=== PATIENT | female | born 2000 | race Hispanic/Latino ===

== ENCOUNTER 2022-01-06 21:26 | Emergency (ER) | payer MEDICAID, SELFPAY ==
--- NOTE | ~2022-01-06 | XR_ITS ---
EXAM: XR foot RT min 3V DATE: 01/06/2022 21:49 HISTORY: foot stepped on with high heel, bruising swelling . COMPARISON: None available. FINDINGS: Normal mineralization. No fracture or dislocation. No lytic or blastic lesion. Joint space s are maintained. No erosion or periosteal change. Forefoot soft tissue swelling. IMPRESSION: No acute osseous finding in the right foot. Reviewed, dictated and finalized at location K.
[2022-01-06 21:27] VITALS: BP 141/73; PULSE 79; RESP 18; TEMP 36.1; O2SAT 99
[2022-01-06] MEDS: IBUPROFEN 400 MG TABLET 800 MG PO (22:21)
[2022-01-06] MEDS: ACETAMINOPHEN 500 MG TABLET 1000 MG PO (22:22)
--- NOTE | 2022-01-06 22:32 | ED.LOWEXIN ---
HPI - Extremity Injury (Lower) General Chief Complaint: Extremity Injury, Lower Stated Complaint: right foot injury Time Seen by Provider: 01/06/22 21:34 History of Present Illness HPI Narrative: Patient is a 21-year-old female here for evaluation of right foot pain after getting accidentally stepped on with a high heel 1 hour prior to arrival. Pain is in her anterior foot just under where she was stepped on. Denies further injury in the incident. States that she is having difficulty moving toes 1 through 4 but she denies numbness. She has not attempted any medication prior to arrival. Able to walk and bear weight with mild pain. Related Data Home Medications Medication Instructions Recorded Confirmed No Home Medications 01/06/22 01/06/22 Allergies Allergy/AdvReac Type Severity Reaction Status Date / Time No Known Allergies Allergy Verified 01/06/22 21:27 Review of Systems Review of Systems: Gen: Denies fevers or chills Eyes: Denies eye pain or visual change ENT: Denies congestion Respiratory: Denies shortness of breath or cough CV: Denies chest pain or palpitations GI: Denies abdominal pain nausea, emesis or diarrhea denies burning, urgency, frequency or hematuria Musculoskeletal: Reports right foot pain. Neuro: Reports difficulty moving toes 1 through 4 on the right. Skin: Denies rash Except as documented, all other systems reviewed and negative Exam Narrative: Gen: Alert, oriented, no acute distress Eyes: EOMI, no icterus Pulm: Respirations even and unlabored, symmetric thorax expansion, no audible stridor or visible cyanosis CV: 2+ DP and PT pulses bilaterally. GI: No distension, no voluntary/involuntary guarding Neuro: Full range of motion in right pinky toe. Patient able to move toes 1 through 4 only slightly. Denies numbness over these areas. Able to plantar and dorsiflex the foot but states it is difficult. Skin: 2 cm area of circular ecchymosis over right anterior foot just proximal to 2nd MTP Psych: Normal mood/affect, insight/judgement good, adequate fund of knowledge, recent/remote memory intact Course Vital Signs Vital signs: Vital Signs Temperature 97 F L 01/06/22 21:27 Pulse Rate 79 01/06/22 21:27 Respiratory Rate 18 01/06/22 21:27 Blood Pressure 141/73 H 01/06/22 21:27 Pulse Oximetry 99 01/06/22 21:27 Oxygen Delivery Room Air 01/06/22 21:27 Temperature 97 F L 01/06/22 21:27 Pulse Rate 79 01/06/22 21:27 Respiratory Rate 18 01/06/22 21:27 Blood Pressure 141/73 H 01/06/22 21:27 Pulse Oximetry 99 01/06/22 21:27 Oxygen Delivery Room Air 01/06/22 21:27 MDM - Extremity Injury (Lower) MDM Narrative Medical decision making narrative: 21-year-old female here for evaluation of right foot pain after getting stepped on earlier today. Patient is hypertensive, likely due to pain, vital signs otherwise normal. She has a small area of ecchymosis underneath where she was stepped on, and is also having difficulty moving toes 1 through 4. Her x-rays negative for acute fracture. She has been walking since the incident. Advised supportive care, will have patient follow-up with podiatry given findings of difficulty moving toes. Discharge Plan Discharge Clinical Impression: Foot pain, right Patient Disposition: Home, Self-Care Condition: Stable Instructions: Antibiotic Form Additional Instructions: Your x-ray was negative for fractures. Please follow-up with a catalog specialist this week for evaluation of your foot pain and difficulty moving your toes. Return to the emergency department if you cannot feel any of your toes, you cannot walk due to pain, or your pain worsens and becomes very severe. Prescriptions: No Action No Home Medications Follow-up/Referrals: PHYSICIAN NOT ON STAFF,NONSTAFF [Primary Care Provider] - Myke Sebastian DPM [Physician] - 2 Days
== END 2022-01-06 22:49 | disposition home or self-care (01) ==
PROVIDERS: Emergency Provider Family Medicine
DX: M79.671 Pain in right foot (principal)
CPT/HCPCS: 73630; 99283; A9270